=== PATIENT | female | born 1970 | race Caucasian/White ===

== ENCOUNTER → 2018-06-30 | Outpatient (REF) | payer OTHER ==
[2018-06-30 16:38] LABS: CREATININE FOR GFR 0.78 MG/DL (0.55-1.30); GLOMERULAR FILTRATION RATE > 60.0 (>58)
[2018-06-30 16:38] LABS: BLOOD UREA NITROGEN 16 MG/DL (7-18)
== END ==
LOC: M LAB REF 15:36
DX: R59.0 Localized enlarged lymph nodes (principal)
CPT/HCPCS: 82565

== ENCOUNTER → 2018-07-07 | Outpatient (CLI) | payer OTHER ==
[~2018-07-07] MED LIST: ISOVUE-370 76% 100ML VIAL (Q9967) As Ordered
== END ==
LOC: M RAD 09:02
DX: R59.0 Localized enlarged lymph nodes (principal)
CPT/HCPCS: Q9967

== ENCOUNTER 2018-07-13 08:50 | Day surgery (SDC) | payer OTHER ==
[~2018-07-13 08:50] MED LIST changes: -ISOVUE-370 76% 100ML VIAL (Q9967) As Ordered; +LIDOCAINE 1% MDV 20ML VIAL SQ; +LR 1,000 ML IV
[2018-07-13] MEDS ORDERED: PROPOFOL 200 MG/20 ML VIAL As Ordered (10:18)
[2018-07-13] MEDS ORDERED: LIDOCAINE 2% INJ 100 MG/5 ML SDV (FOR ANES.) As Ordered (10:18)
[2018-07-13] MEDS ORDERED: ROCURONIUM BROMIDE 50 MG/5 ML VIAL As Ordered (10:18)
[2018-07-13] MEDS ORDERED: dexameTHASONE 4 MG/ML 1ML VIAL (J1100) As Ordered (10:18)
[2018-07-13] MEDS ORDERED: ONDANSETRON 4MG/2ML VIAL (J2405) As Ordered (10:18)
[2018-07-13] MEDS ORDERED: METOCLOPRAMIDE INJ 10MG/2ML VIAL (J2765) As Ordered (10:18)
[2018-07-13] MEDS ORDERED: fentaNYL 100 MCG/2 ML INJECTION (J3010) As Ordered (10:18)
[2018-07-13] MEDS ORDERED: GLYCOPYRROLATE INJ 0.2 MG/ML 2 ML VIAL As Ordered (10:18)
[2018-07-13] MEDS ORDERED: NEOSTIGMINE 10 MG/10 ML VIAL (J2710) As Ordered (10:18)
[2018-07-13] MEDS ORDERED: MIDAZOLAM INJ 2 MG/2 ML VIAL (J2250) As Ordered ×2 (10:18→10:52)
[2018-07-13] MEDS: CETACAINE SPRAY 5GM As Ordered (10:24)
[2018-07-13] MEDS: THROMBIN SOLN 5,000 UNITS VIAL As Ordered (10:52)
[2018-07-13] MEDS: EPINEPHrine 1MG/10ML SYRINGE 1.5IN As Ordered (10:52)
[2018-07-13] MEDS: LIDOCAINE 1% SDV INJ 30 ML VIAL As Ordered (10:52)
[2018-07-13] MEDS: LIDOCAINE VISCOUS 2% SOLN 15ML UDC As Ordered (10:52)
[2018-07-13] MEDS ORDERED: fentaNYL 100 MCG/2 ML INJECTION (J3010) IV (11:30)
[2018-07-13] MEDS ORDERED: LR 1,000 ML IV (11:30)
[2018-07-13] MEDS ORDERED: PERCOCET 5MG/325MG TAB PO (11:30)
[2018-07-13] MEDS ORDERED: METOCLOPRAMIDE INJ 10MG/2ML VIAL (J2765) IV (11:30)
[2018-07-13] MEDS ORDERED: ONDANSETRON 4MG/2ML VIAL (J2405) IV (11:30)
== END 2018-07-13 13:15 | disposition home or self-care (01) ==
LOC: M SDC 08:50
DX: R59.9 Enlarged lymph nodes, unspecified (principal); R91.8 Other nonspecific abnormal finding of lung field; C81.10 Nodular sclerosis Hodgkin lymphoma, unspecified site; M15.0 Primary generalized (osteo)arthritis; F41.9 Anxiety disorder, unspecified; G62.9 Polyneuropathy, unspecified; K21.9 Gastro-esophageal reflux disease without esophagitis; J30.9 Allergic rhinitis, unspecified; Z92.21 Personal history of antineoplastic chemotherapy; Z90.710 Acquired absence of both cervix and uterus; Z92.3 Personal history of irradiation; Z87.891 Personal history of nicotine dependence; Z79.899 Other long term (current) drug therapy
CPT/HCPCS: 31652